=== PATIENT | female | born 2000 | race Caucasian/White ===

== ENCOUNTER 2023-12-13 01:18 | Emergency (ER) | payer BC ==
[~2023-12-13] VITALS: Ht 162.6 cm; Wt 59.0 kg
[2023-12-13 01:39] VITALS: BP 118/79; TEMP 98.6; O2SAT 99
== END 2023-12-13 01:43 | disposition left against medical advice (07) ==
LOC: ER 01:24
DX: F41.9 Anxiety disorder, unspecified (principal); Z53.21 Procedure and treatment not carried out due to patient leaving prior to being seen by health care provider